=== PATIENT | female | born 1955 | race Two or more races ===

== ENCOUNTER 2021-11-05 09:04 | Day surgery (SDC) | payer MEDICARE ==
[2021-11-03 10:35] LABS: BASOPHILS % (AUTO) 0.8 % (0-1); EOSINOPHILS # (AUTO) 0.1 X10'3 (0-0.9); EOSINOPHILS % (AUTO) 1.1 % (0-6); LYMPHOCYTES # (AUTO) 1.5 X10'3 (1.1-4.8); LYMPHOCYTES % (AUTO) 31.8 % (21-51); MEAN CORPUSCULAR HEMOGLOBIN 29.7 PG (27.0-31.0); MEAN CORPUSCULAR HGB CONC 33.7 g/dL (33.0-36.5); MEAN CORPUSCULAR VOLUME 87.9 FL (78-98); MONOCYTES # (AUTO) 0.3 X10'3 (0-0.9); NEUTROPHILS # (AUTO) 2.8 X10'3 (1.8-7.7); NEUTROPHILS % (AUTO) 59.3 % (42-75); PRE OP HEMATOCRIT 38.6 % (35.0-45.0); PRE OP PLATELET COUNT 275 X10'3 (140-440); RED BLOOD COUNT 4.38 X10'6 (4.20-5.60)
[2021-11-03 10:51] LABS: ALBUMIN 3.9 G/DL (3.4-5.0); ALBUMIN/GLOBULIN RATIO 1.1 (1.1-1.5); ALKALINE PHOSPHATASE 46 IU/L (46-116); BLOOD UREA NITROGEN 18 MG/DL (7-18); BUN/CREATININE RATIO 26.9 (6.6-38.0); CALCIUM 8.2 MG/DL (8.5-10.1); CHLORIDE 109 MMOL/L (99-107); CREATININE 0.67 MG/DL (0.40-0.90); PRE OP ALT 20 U/L (30-65); PRE OP ANION GAP 9 (8-16); PRE OP AST 15 U/L (10-37); PRE OP BILIRUB, TOTAL 1.2 MG/DL (0.0-1.0); PRE OP GLUCOSE 96 MG/DL (70-104); PRE OP POTASSIUM 3.7 MMOL/L (3.4-5.1); PRE OP SODIUM 143 MMOL/L (135-145); TOTAL CARBON DIOXIDE 25.5 MMOL/L (24-32); TOTAL PROTEIN 7.4 G/DL (6.4-8.2); eGFR 88 ML/MIN
[~2021-11-05] VITALS: Ht 149.9 cm; Wt 72.1 kg
[2021-11-05] VITALS (7 sets, daily range): BP systolic 119–135; BP diastolic 58–77
[~2021-11-05 09:04] MED LIST: BUPIVAcaine/PF 7.5mg/ml (0.75%) 10ml vial ONE; FLUO20CA39 PO; LIDOcaine 0.5% (5mg/ml) 50ml vial ONE; MELO-102 PO; famotidine 20mg tablet PO ONE; ringers solution, lacted 1,000 ML IV SCH
[2021-11-05] MEDS ORDERED: hydrALAZINE 20mg/ml inj. IV PRN (10:05)
[2021-11-05] MEDS ORDERED: labetalol 20mg/4ml (5mg/ml) syringe IV PRN (10:05)
[2021-11-05] MEDS ORDERED: ondansetron/PF 4mg/2ml inj IV PRN (10:05)
[2021-11-05] MEDS ORDERED: morphine 4 MG/ML inj SYRINge IV PRN (10:05)
[2021-11-05] MEDS ORDERED: ringers solution, lacted 1,000 ML IV SCH (10:05)
[2021-11-05] MEDS ORDERED: morphine 2 MG/ML inj. syringe IV PRN (10:05)
[2021-11-05] MEDS ORDERED: fentaNYL/PF 50MCG/1 ML 2ML syringe IV PRN ×2 (10:05)
[2021-11-05] MEDS ORDERED: MIDAZolam 1 MG/ML 5ML VIAL ONE (10:55)
[2021-11-05] MEDS ORDERED: fentaNYL/PF 50MCG/1 ML 2ML syringe ONE (10:55)
[2021-11-05] MEDS ORDERED: ketorolac trometh. 30mg/ml inj. ONE (11:21)
--- NOTE | 2021-11-05 12:49 | NUR ---
ALL DISCHARGE CRITERIA HAS BEEN MET. VSS, PAIN AT A TOLERABLE LEVEL, ABLE TO SAFELY AMBULATE AND TRANSFER SELF. IV TAKEN OUT WITHOUT ANY COMPLICATIONS. ALL DISCHARGE INSTRUCTIONS COVERED WITH PATIENT AND ALL QUESTIONS ANSWERED. PATIENT TAKEN OUT VIA WHEELCHAIR TO PERSONAL VEHICLE WHERE FAMILY DROVE PATIENT HOME. Addendum: 11/05/21 at 1304 by Brenden Huffman RN Amended: Links added.
== END 2021-11-05 12:49 | disposition home or self-care (01) ==
LOC: PAS 09:04
PROVIDERS: ATTEND Orthopaedic Surgery Hand Surgery
DX: G56.01 Carpal tunnel syndrome, right upper limb (principal); M18.11 Unilateral primary osteoarthritis of first carpometacarpal joint, right hand; F32.A Depression, unspecified; G43.909 Migraine, unspecified, not intractable, without status migrainosus; E66.01 Morbid (severe) obesity due to excess calories; Z68.31 Body mass index [BMI] 31.0-31.9, adult; Z79.899 Other long term (current) drug therapy; Z90.49 Acquired absence of other specified parts of digestive tract; Z90.710 Acquired absence of both cervix and uterus; Z98.51 Tubal ligation status; Z98.890 Other specified postprocedural states
CPT/HCPCS: 25310; 25447; 36415; 64721; 80053; 82948; 85025; 93005; J0690; J1885; J2250; J3010; J3490; J7030; J7060; J7120; Z7506; Z7508; Z7512; A4215; A4618; A7000

== ENCOUNTER 2022-02-28 07:45 | Day surgery (SDC) | payer MEDICARE ==
[2022-02-23 15:23] LABS: BASOPHILS # (AUTO) 0.1 X10'3 (0-0.2); BASOPHILS % (AUTO) 0.8 % (0-1); EOSINOPHILS # (AUTO) 0.1 X10'3 (0-0.9); LYMPHOCYTES % (AUTO) 28.1 % (21-51); MEAN CORPUSCULAR HEMOGLOBIN 29.3 PG (27.0-31.0); MEAN CORPUSCULAR HGB CONC 33.5 g/dL (33.0-36.5); MEAN CORPUSCULAR VOLUME 87.3 FL (78-98); MEAN PLATELET VOLUME 8.2 FL (7.4-10.4); MONOCYTES # (AUTO) 0.7 X10'3 (0-0.9); MONOCYTES % (AUTO) 9.4 % (2-12); NEUTROPHILS # (AUTO) 4.3 X10'3 (1.8-7.7); NEUTROPHILS % (AUTO) 59.7 % (42-75); PRE OP HEMATOCRIT 36.8 % (35.0-45.0); PRE OP HEMOGLOBIN 12.3 g/dL (12.0-16.0); PRE OP PLATELET COUNT 299 X10'3 (140-440); RED BLOOD COUNT 4.22 X10'6 (4.20-5.60); RED CELL DISTRIBUTION WIDTH 13.2 % (11.5-14.5)
[2022-02-23 15:42] LABS: ALBUMIN 3.9 G/DL (3.4-5.0); ALBUMIN/GLOBULIN RATIO 1.2 (1.1-1.5); ALKALINE PHOSPHATASE 61 IU/L (46-116); BLOOD UREA NITROGEN 17 MG/DL (7-18); BUN/CREATININE RATIO 23.9 (6.6-38.0); CALCIUM 8.4 MG/DL (8.5-10.1); CHLORIDE 107 MMOL/L (99-107); CREATININE 0.71 MG/DL (0.40-0.90); PRE OP ALT 28 U/L (30-65); PRE OP ANION GAP 10 (8-16); PRE OP AST 17 U/L (10-37); PRE OP BILIRUB, TOTAL 0.5 MG/DL (0.0-1.0); PRE OP GLUCOSE 99 MG/DL (70-104); PRE OP POTASSIUM 3.9 MMOL/L (3.4-5.1); PRE OP SODIUM 143 MMOL/L (135-145); TOTAL CARBON DIOXIDE 26.3 MMOL/L (24-32); TOTAL PROTEIN 7.2 G/DL (6.4-8.2); eGFR 82 ML/MIN
[~2022-02-28] VITALS: Ht 149.9 cm; Wt 70.8 kg
[~2022-02-28 07:45] MED LIST changes: +ATOR20TA66 PO; -BUPIVAcaine/PF 7.5mg/ml (0.75%) 10ml vial ONE; -LIDOcaine 0.5% (5mg/ml) 50ml vial ONE; +LIDOcaine 1% 30ml preserv. free vial ONE; +ceFAZolin inj. 2,000 MG in dextrose 5%-water 100 ML IV ONE
[2022-02-28] MEDS ORDERED: BUPIVAcaine/PF 2.5mg/ml (0.25%) 10ml vial ONE ×2 (11:16→11:22)
[2022-02-28] MEDS ORDERED: fentaNYL/PF 50MCG/1 ML 2ML syringe ONE (11:24)
[2022-02-28] MEDS ORDERED: MIDAZolam 1 MG/ML 5ML VIAL ONE (11:24)
[2022-02-28 12:22] VITALS: BP 134/72
[2022-02-28 12:24] VITALS: BP 134/72
[2022-02-28] MEDS ORDERED: ketorolac trometh. 30mg/ml inj. ONE (12:27)
[2022-02-28 12:32] VITALS: BP 116/73
--- NOTE | 2022-02-28 12:32 | NUR ---
Received from OR via [facility], accompanied by Anesthesiologist DR. CLINE and report given by Anesthesiolgist. 20G PIV TO RIGHT HAND WITH LR RUNNING AT 100ML/HR. LEFT WRIST WITH DRESSING CDI, ICE APPLIED. VS WNL'S. ON RA. DENIES PAIN. AWAKE AND ALERT.
[2022-02-28 12:42] VITALS: BP 105/62
[2022-02-28 12:52] VITALS: BP 108/68
[2022-02-28 13:02] VITALS: BP 114/60
--- NOTE | 2022-02-28 13:02 | NUR ---
PATIENT MEETS DISCHARGE CRITERIA. DENIES PAIN. DRESSING TO LEFT WRIST CDI. PIV REMOVED. ALL BELONGINGS ACCOUNTED FOR. PATIENT DISCHARGE INSTRUCTIONS UNDERSTOOD. PATIENT DISCHARGED HOME WITH , ASAF.
== END 2022-02-28 13:02 | disposition home or self-care (01) ==
LOC: PAS 07:45
PROVIDERS: ATTEND Orthopaedic Surgery Hand Surgery
DX: M18.12 Unilateral primary osteoarthritis of first carpometacarpal joint, left hand (principal); Z79.899 Other long term (current) drug therapy; Z98.890 Other specified postprocedural states; J45.909 Unspecified asthma, uncomplicated; Z20.822 Contact with and (suspected) exposure to COVID-19
CPT/HCPCS: 25312; 25447; 36415; 80053; 82948; 85025; 87811; A6222; A6258; J0690; J1885; J2250; J3010; J3490; J7030; J7060; J7120; Z7506; Z7508; Z7512; A4215; A4618; A7000